=== PATIENT | male | born 1950 | race Caucasian/White ===

== ENCOUNTER 2023-08-30 00:09 | Emergency (ER) | payer MEDICARE, BC ==
[2023-08-30 00:26] VITALS: RESP 18
--- NOTE | 2023-08-30 01:56 | ED ---
Skin/Abscess/FB HPI - General Chief complaint: Skin/Abscess/Foreign Body Stated complaint: Clots in right leg, right arm pain Time Seen by Provider: 08/30/23 01:55 Source: patient Limitations: no limitations - History of Present Illness Initial comments: 73-year-old male presenting with chief complaint of pain and a cordlike area of swelling to the right arm. Patient states that he noticed this 2 days ago. Patient was just restarted on Coumadin 2 days ago he has history of DVT and PE, states that he had an ultrasound of his legs and was told that he had blood clots but is unsure about details regarding this diagnosis. He is having no chest pain or difficulty breathing. No dizziness. No fevers. No injury. No numbness tingling or weakness. - Related Data Allergies Allergy/AdvReac Type Severity Reaction Status Date / Time heparin Allergy Unknown Verified 08/30/23 00:28 Iodinated Contrast Media Allergy Rash/Hives Verified 08/30/23 00:28 Sulfa (Sulfonamide Allergy Rash/Hives Verified 08/30/23 00:28 Antibiotics) Review of Systems ROS Statement: Those systems with pertinent positive or pertinent negative responses have been documented in the HPI. ROS Other: All systems not noted in ROS Statement are negative. Past Medical History Past Medical History: Coronary Artery Disease (CAD), Hypertension Additional Past Medical History / Comment(s): PE History of Any Multi-Drug Resistant Organisms: None Reported Past Surgical History: Joint Replacement, Orthopedic Surgery Additional Past Surgical History / Comment(s): bipass, cardiac ablation, colonectomy, L knee, carpal tunnel Smoking Status: Never smoker Past Alcohol Use History: None Reported Past Drug Use History: None Reported General Exam - General Exam Comments Initial Comments: Visual Physical Exam Vital signs reviewed General: Well-appearing, nontoxic, no acute distress. Head: Normocephalic, atraumatic Eyes: PERRLA, EOMI ENT: Airway patent Chest: Nonlabored breathing Skin: No visual rash, normal skin tone Neuro: Alert and oriented 3 Musculoskeletal: No gross abnormalities Limitations: no limitations General appearance: alert, in no apparent distress Head exam: Present: atraumatic, normocephalic Eye exam: Present: normal appearance, EOMI Neck exam: Present: normal inspection. Absent: meningismus Respiratory exam: Present: normal lung sounds bilaterally. Absent: respiratory distress, wheezes, rales, rhonchi, stridor Cardiovascular Exam: Present: regular rate, normal rhythm, normal heart sounds. Absent: systolic murmur, diastolic murmur, rubs, gallop, clicks Right Upper Arm exam: Present: normal inspection, full ROM, tenderness, swelling (Cordlike area of swelling). Absent: ecchymosis, erythema Neurological exam: Present: alert, oriented X3 Psychiatric exam: Present: normal affect, normal mood Skin exam: Present: normal color Course Vital Signs 08/30/23 08/30/23 08/30/23 00:18 02:23 04:55 Temperature 98.0 F 98.1 F Pulse Rate 83 70 67 Respiratory 18 18 18 Rate Blood Pressure 127/84 111/74 122/74 O2 Sat by Pulse 95 97 95 Oximetry Medical Decision Making - Medical Decision Making Was pt. sent in by a medical professional or institution (, PA, RESPIRATORY THERAPY INSTRUCTOR, urgent care, hospital, or fpc...) When possible be specific @ -No Did you speak to anyone other than the patient for history (EMS, parent, family, police, friend...)? What history was obtained from this source @ -No Did you review nursing and triage notes (agree or disagree)? Why? @ -I reviewed and agree with nursing and triage notes Were old charts reviewed (outside hosp., previous admission, EMS record, old EKG, old radiological studies, urgent care reports/EKG's, fpc records)? Report findings @ -No old charts were reviewed Differential Diagnosis (chest pain, altered mental status, abdominal pain women, abdominal pain men, vaginal bleeding, weakness, fever, dyspnea, syncope, headache, dizziness, GI bleed, back pain, seizure, CVA, palpatations, mental health, musculoskeletal)? @ -Differential Musculoskeletal Muscular strain, contusion, ligament sprain, fracture, arthritis, septic arthritis, bursitis, cellulitis, muscle spasm, nerve compression, DVT, arterial occlusion, herpes zoster, electrolyte abnormality, tumor.... This is not meant to be in all inclusive list EKG interpreted by me (3pts min.). @ -As above X-rays interpreted by me (1pt min.). @ -None done CT interpreted by me (1pt min.). @ -None done U/S interpreted by me (1pt. min.). @ -Ultrasound shows right cephalic vein thrombosis What testing was considered but not performed or refused? (CT, X-rays, U/S, labs)? Why? @ -None What meds were considered but not given or refused? Why? @ -None Did you discuss the management of the patient with other professionals (professionals i.e. , PA, RESPIRATORY THERAPY INSTRUCTOR, lab, RT, psych nurse, director social service, mill hand plate mill, teacher, public safety officer, caseworker)? Give summary @ -No Was smoking cessation discussed for >3mins.? @ -No Was critical care preformed (if so, how long)? @ -No Were there social determinants of health that impacted care today? How? (Homelessness, low income, unemployed, alcoholism, drug addiction, transportation, low edu. Level, literacy, decrease access to med. care, correction, rehab)? @ -No Was there de-escalation of care discussed even if they declined (Discuss DNR or withdrawal of care, Hospice)? DNR status @ -No What co-morbidities impacted this encounter? (DM, HTN, Smoking, COPD, CAD, Cancer, CVA, ARF, Chemo, Hep., AIDS, mental health diagnosis, sleep apnea, morbid obesity)? @ -None Was patient admitted / discharged? Hospital course, mention meds given and route, prescriptions, significant lab abnormalities, going to OR and other pertinent info. @ -73-year-old male presenting with chief complaint of pain and some swelling to his right arm. History of DVT. Was recently restarted on warfarin 2 days ago. History and physical exam are conducted. Ultrasound is positive for superficial thrombosis of the cephalic vein. Patient is already on warfarin. He is having no chest pain or difficulty breathing. No red flag symptoms. He is educated on today's findings and alarm symptoms that should prompt reevaluation. Discharged home. Follow-up with PCP. Report back to ER with any new or worsening symptoms. Discussed return parameters and answered all questions. Patient conveyed verbal understanding and agreed to the plan. I discussed this case in detail with my attending Dr. Brown Undiagnosed new problem with uncertain prognosis? @ -No Drug Therapy requiring intensive monitoring for toxicity (Heparin, Nitro, Ins ulin, Cardizem)? @ -No Were any procedures done? @ -No Diagnosis/symptom? @ -Superficial venous thrombosis Acute, or Chronic, or Acute on Chronic? @ -Acute Uncomplicated (without systemic symptoms) or Complicated (systemic symptoms)? @ -Complicated Side effects of treatment? @ -No Exacerbation, Progression, or Severe Exacerbation? @ -No Poses a threat to life or bodily function? How? (Chest pain, [place], [place], pneumonia, PE, COPD, DKA, ARF, appy, cholecystitis, CVA, Diverticulitis, Homicidal, Suicidal, threat to staff... 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 Report back to ER with any new or worsening symptoms. Is patient prescribed a controlled substance at d/c from ED?: No Referrals: Vinay Odonnell DO [Primary Care Provider] - 1-2 days Time of Disposition: 04:42
--- NOTE | 2023-08-30 04:01 | US ---
EXAM: US Duplex Right Upper Extremity Veins CLINICAL HISTORY: ITS.REASON US Reason: hx clots, upper right arm pain TECHNIQUE: Real-time duplex ultrasound scan of the right upper extremity veins integrating B-mode two-dimensional vascular structure, Doppler spectral analysis, color flow Doppler imaging and compression. COMPARISON: No relevant prior studies available. FINDINGS: Deep veins: Unremarkable. No DVT in the internal jugular, subclavian, axillary, or brachial veins. The veins demonstrate normal color flow, are normally compressible, with normal phasic flow and/or augmentation response. Superficial veins: Right cephalic vein is noncompressible without evidence of color Doppler flow. Echoes within the cephalic vein. Basilic vein is patent. Soft tissues: No acute findings. IMPRESSION: Right cephalic vein thrombosis. <MYCVCSECTION> Communications: 08/30/23 04:22 Verify Receipt Verified receipt with JORGE Broussard for Dr. Brown on 08/29 04:22 (-04:00)
[2023-08-30 04:56] VITALS: BP 122/74; PULSE 67; TEMP 98.1
== END 2023-08-30 04:56 | disposition home or self-care (01) ==
LOC: EC 00:09
DX: I82.611 Acute embolism and thrombosis of superficial veins of right upper extremity (principal); Z88.2 Allergy status to sulfonamides; Z88.8 Allergy status to other drugs, medicaments and biological substances; Z91.041 Radiographic dye allergy status
CPT/HCPCS: 99283